=== PATIENT | female | born 1995 | race Caucasian/White ===

== ENCOUNTER 2019-05-07 07:01 | Emergency (ER) | payer BC, MEDICAID ==
--- NOTE | 2019-05-07 07:38 | EDM.PDOC ---
ED HPI GENERAL MEDICAL PROBLEM - General Chief Complaint: Lower Extremity Injury/Pain Stated Complaint: HURT LEFT FOOT Time Seen by Provider: 05/07/19 07:15 Source of Information: Reports: Patient History Limitations: Reports: No Limitations - History of Present Illness INITIAL COMMENTS - FREE TEXT/NARRATIVE: Slipped on ice last night and twisted her left foot . has pain in the dorsum of the foot and lateral ankle Onset: Today Onset Date: 05/07/19 Duration: Hour(s): Location: Reports: Lower Extremity, Left (left foot ) Quality: Reports: Ache, Dull Severity: Moderate Improves with: Reports: Cold Therapy, Immobilization, Rest Worsens with: Reports: Movement Context: Reports: Activity Treatments [employer] AGENT: Reports: NSAIDS left foot/ankle Pain Score (Numeric/FACES): 5 - Related Data Allergies Allergy/AdvReac Type Severity Reaction Status Date / Time No Known Allergies Allergy Verified 05/07/19 07:31 Past Medical History HEENT History: Reports: Cataract, Impaired Vision - Past Surgical History HEENT Surgical History: Reports: Cataract Surgery Social & Family History - Family History Family Medical History: Noncontributory - Tobacco Use Smoking Status *Q: Current Every Day Smoker Years of Tobacco use: 12 Packs/Tins Daily: 1 - Caffeine Use Caffeine Use: Reports: Soda - Recreational Drug Use Recreational Drug Use: Yes Recreational Drug Type: Reports: Marijuana/Hashish Review of Systems - Review of Systems Review Of Systems: Comprehensive ROS is negative, except as noted in HPI. ED EXAM, GENERAL - Physical Exam Exam: See Below Exam Limited By: No Limitations General Appearance: Alert, WD/WN Eye Exam: Bilateral Eye: EOMI Nose: Normal Inspection Throat/Mouth: Normal Oropharynx Head: Atraumatic, Normocephalic Neck: Supple, Non-Tender, Full Range of Motion Respiratory/Chest: Lungs Clear Back Exam: Full Range of Motion Extremities: Joint Swelling, Limited Range of Motion, Other (swelling lateral left ankle and dorsum of the foot) Neurological: Alert, Oriented Psychiatric: Normal Affect Skin Exam: Warm Course - Vital Signs Last Recorded V/S: Last Vital Signs Temp 36.6 C 05/07/19 07:14 Pulse 64 05/07/19 07:14 Resp 14 05/07/19 07:14 BP 102/63 05/07/19 07:14 Pulse Ox 99 05/07/19 07:14 - Orders/Labs/Meds Orders: Active Orders 24 hr Category Date Time Status Ankle Min 3V Lt [CR] Stat Exams 05/07/19 08:06 Taken Foot Comp Min 3V Lt [CR] Stat Exams 05/07/19 07:41 Taken - Re-Assessments/Exams Free Text/Narrative Re-Assessment/Exam: 05/07/19 07:44 Xray of foot and ankle left side done Departure - Departure Time of Disposition: 08:40 Disposition: Home, Self-Care 01 Clinical Impression: Mild sprain of left ankle, Left foot pain, Sprain of foot, left - Discharge Information *PRESCRIPTION DRUG MONITORING PROGRAM REVIEWED*: Not Applicable *COPY OF PRESCRIPTION DRUG MONITORING REPORT IN PATIENT [facility]: Not Applicable Instructions: Ankle Sprain, [id number] Referrals: PCP,None [Primary Care Provider] - Forms: ED Department Discharge Additional Instructions: 1) Rest , Elevate foot when sitting down Keep ADÁN wrap on all the time 2) Follow up with PCP in 5-7 days for recheck Sepsis Event Note - Evaluation Sepsis Screening Result: No Definite Risk - Focused Exam Vital Signs: Vital Signs Temp Pulse Resp BP Pulse Ox 05/07/19 07:14 36.6 C 64 14 102/63 99 Date Exam was Performed: 05/07/19 Time Exam was Performed: 08:33 - My Orders Last 24 Hours: My Active Orders 05/07/19 07:41 Foot Comp Min 3V Lt [CR] Stat 05/07/19 08:06 Ankle Min 3V Lt [CR] Stat - Assessment/Plan Last 24 Hours: My Active Orders 05/07/19 07:41 Foot Comp Min 3V Lt [CR] Stat 05/07/19 08:06 Ankle Min 3V Lt [CR] Stat
--- NOTE | 2019-05-07 17:27 | CR ---
INDICATION: Fall. LEFT FOOT: Three views of the left foot revealed no evidence of a fracture, dislocation or other significant bone or joint abnormality. If an occult fracture site is suspected clinically, reexamination in 10-14 days may be helpful. MTDD
--- NOTE | 2019-05-07 17:28 | CR ---
INDICATION: Fall. Pain in the left ankle. LEFT ANKLE: Three views of the left ankle were obtained 05/07/19 - no comparisons. A fracture, dislocation or other significant bone or joint abnormality was not identified. The ankle mortise appeared to be intact. No soft tissue swelling is seen. If symptoms persist - if occult fracture site is suspected clinically, reexamination in 10-14 days and/or more advanced imaging, may be helpful. MTDD
== END 2019-05-07 08:43 | disposition home or self-care (01) ==
LOC: FB.ED 07:01
DX: S93.402A Sprain of unspecified ligament of left ankle, initial encounter (principal); S93.602A Unspecified sprain of left foot, initial encounter; F17.210 Nicotine dependence, cigarettes, uncomplicated; X50.1XXA Overexertion from prolonged static or awkward postures, initial encounter
CPT/HCPCS: 73610-LT; 73630-LT; 99283-25

== ENCOUNTER 2023-12-22 23:19 | Emergency (ER) | payer MEDICAID ==
[2023-12-22] MEDS ORDERED: Lidocaine 1% 5 ML VIAL INFILT ONE (23:20)
[2023-12-22] MEDS: Amoxicillin/Clavulanate K 875-125 MG Tab PO ONE (23:35)
== END 2023-12-23 00:54 | disposition home or self-care (01) ==
LOC: FB.ED 23:19
DX: S51.852A Open bite of left forearm, initial encounter (principal); F17.210 Nicotine dependence, cigarettes, uncomplicated; W54.0XXA Bitten by dog, initial encounter
CPT/HCPCS: 12001; 99283; A9270-GY